=== PATIENT | female | born 1980 | race African-American/Black ===

== ENCOUNTER 2020-08-21 16:29 | Emergency (ER) | payer OTHER ==
[~2020-08-21] VITALS: Ht 167.6 cm; Wt 63.5 kg
[2020-08-21] MEDS ORDERED: KETOROLAC TROMETHAMINE 15 MG INJ IVP ONE (16:45)
[2020-08-21] MEDS ORDERED: IV NORMAL SALINE 1000 ML BAG IV ONE (16:45)
[2020-08-21] MEDS ORDERED: LORAZEPAM 0.5 MG TABLET PO ONE (16:45)
[2020-08-21] MEDS ORDERED: LORAZEPAM 2 MG/1 ML VIAL ONE (16:52)
[2020-08-21 16:58] LABS: BASOPHILS % (AUTO) 0.6 % (0.0-2.0); EOSINOPHILS # (AUTO) 0.1 K/uL (0.0-0.7); EOSINOPHILS % (AUTO) 2.1 % (0.0-7.0); HEMATOCRIT 30.3 % (31.2-41.9); LYMPHOCYTES # (AUTO) 1.7 K/uL (20.0-40.0); LYMPHOCYTES % (AUTO) 41.1 % (20.5-51.5); MEAN CORPUSCULAR HEMOGLOBIN 28.3 uug (24.7-32.8); MEAN CORPUSCULAR HGB CONC 33 g/dL (32.3-35.6); MEAN CORPUSCULAR VOLUME 85.9 fL (75.5-95.3); MONOCYTES # (AUTO) 0.4 K/uL (2.0-10.0); MONOCYTES % (AUTO) 8.9 % (0.0-11.0); NEUTROPHILS % (AUTO) 47.3 % (38.5-71.5); PLATELET COUNT (AUTO) 288 K/uL (179-408); RED BLOOD CELL COUNT(AUTO) 3.53 MIL/uL (3.63-4.92); WHITE BLOOD COUNT (AUTO) 4.2 K/uL (3.8-11.8)
[2020-08-21] MEDS ORDERED: KETOROLAC TROMETHAMINE 15 MG INJ ONE (17:00)
--- NOTE | 2020-08-21 17:00 | NUR ---
PATIENT WAS SEEN BY MD. PLACED ON A MONITOR. 12 LEAD EKG DONE. IV PLACED, MEDS GIVEN ORDERED. ULTRASOUND IN PROCESS..
[2020-08-21 17:08] LABS: POTASSIUM 3.8 mmol/L (3.5-5.1)
[2020-08-21 17:14] LABS: BILIRUBIN,DIRECT 0.1 mg/dL (0.0-0.2); BILIRUBIN,TOTAL 0.4 mg/dL (0.2-1.0); TOTAL PROTEIN, SERUM 6.9 g/dL (6.4-8.2)
[2020-08-21 18:15] LABS: *BILIRUBIN,URIN NEGATIVE (NEGATIVE); *BLOOD, URINE 2+ (NEGATIVE); *COLOR,URINE YELLOW (YELLOW); *KETONES,URINE 1+ (NEGATIVE); LEUKOCYTE ESTERASE ,URINE NEGATIVE (NEGATIVE); NITRITE, URINE NEGATIVE (NEGATIVE); PH,URINE 6.5 (5.0-8.0); UGLUCOSE NEGATIVE (NEGATIVE)
[2020-08-21 18:16] LABS: *URINE HCG, QUAL NEGATIVE (NEGATIVE)
[2020-08-21 18:20] LABS: *CLARITY,URINE HAZY (CLEAR)
[2020-08-21 18:21] LABS: BACTERIA,URINE FEW /HPF (NONE SEEN); MUCUS,URINE FEW /LPF (0-FEW); RBC,URINE 50-80 /HPF (0-3); SQUAMOUS EPITHELIAL CELL,UR FEW /HPF (NONE SEEN)
--- NOTE | 2020-08-21 18:56 | NUR ---
DC, RX AND FOLLOW UP INSTRUCTIONS GIVEN AND EXPLAINED TO PATIENT WHO STATES SHE UNDERSTANDS ALL INSTRUCTIONS
--- NOTE | 2020-08-21 18:56 | NUR ---
IV removed. Catheter intact and site benign. Pressure and 4x4 gauze applied to site. No bleeding noted.
[2020-08-21 18:57] VITALS: BP 114/72
== END 2020-08-21 18:58 | disposition home or self-care (01) ==
LOC: ER 16:29
DX: R55 Syncope and collapse (principal); D25.1 Intramural leiomyoma of uterus; N93.9 Abnormal uterine and vaginal bleeding, unspecified; D64.9 Anemia, unspecified
CPT/HCPCS: 36415; 71045; 76856; 80048; 80076; 81001; 84484; 84703; 85025; 85730; 87086; 93005; 96361; 96374; 99285; J1885; 70030-TC; A4663; J2060; J7030